=== PATIENT | male | born 1975 | race Caucasian/White ===

== ENCOUNTER 2024-01-27 07:46 | Emergency (ER) | payer OTHER ==
[~2024-01-27] VITALS: Ht 172.7 cm; Wt 97.7 kg
[2024-01-27] MEDS ORDERED: ASPI-1450 PO (07:54)
[2024-01-27] MEDS ORDERED: ESCI-8 PO (07:54)
[2024-01-27] MEDS ORDERED: AMLO-258 PO (07:54)
[2024-01-27 07:56] VITALS: TEMP 97.6
[2024-01-27 08:15] VITALS: BP 156/87; PULSE 72; RESP 18; O2SAT 99
[2024-01-27] MEDS ORDERED: CORTSOL AD (08:40)
== END 2024-01-27 08:45 | disposition home or self-care (01) ==
LOC: EMS 07:46
DX: H60.91 Unspecified otitis externa, right ear (principal); I10 Essential (primary) hypertension; Z98.890 Other specified postprocedural states; Z79.82 Long term (current) use of aspirin
CPT/HCPCS: 99283; Z7502

== ENCOUNTER 2024-08-18 11:16 | Emergency (ER) | payer OTHER ==
[~2024-08-18] VITALS: Ht 172.7 cm; Wt 104.1 kg
[~2024-08-18 11:16] MED LIST: AMLO-258 PO; ASPI-1450 PO; CORTSOL AD; ESCI-8 PO
[2024-08-18] MEDS ORDERED: ATOR10TA PO (11:21)
[2024-08-18] MEDS ORDERED: PROP80CA41 PO (11:21)
[2024-08-18 11:43] LABS: BASOPHILS % (AUTO) 0.9 % (0.0-2.0); EOSINOPHILS % (AUTO) 4.4 % (1.0-6.0); HEMATOCRIT 48.1 % (41-53); HEMOGLOBIN 16.2 g/dL (13.5-17.5); LYMPHOCYTES # (AUTO) 1.2 K/uL (1.0-4.8); LYMPHOCYTES % (AUTO) 19.4 % (22.0-44.0); MEAN CORPUSCULAR HEMOGLOBIN 29.1 pg (26.0-34.0); MEAN CORPUSCULAR HGB CONC 33.6 G/dL (31.0-37.0); MEAN CORPUSCULAR VOLUME 87 fL (80-100); MONOCYTES # (AUTO) 0.5 K/uL (0.1-1.0); MONOCYTES % (AUTO) 8.3 % (2.0-9.0); NEUTROPHILS # (AUTO) 4.2 K/uL (1.8-7.7); PLATELET COUNT (AUTO) 188 K/uL (150-450); RED BLOOD CELL COUNT(AUTO) 5.54 MIL/uL (4.50-5.90); RED CELL DISTRIBUTION WIDTH 13.4 % (11.5-14.5); WHITE BLOOD COUNT (AUTO) 6.3 K/uL (4.5-11.0)
[2024-08-18] MEDS: SODIUM CHLORIDE 0.9% 1,000 ML IV ONE ×2 (12:03→13:31)
[2024-08-18 12:07] LABS: ANION GAP 14 mmol/L (8-16); CALCIUM, TOTAL 9.4 mg/dL (8.8-10.5); CARBON DIOXIDE 24 mmol/L (22-29); CHLORIDE 93 mmol/L (98-107); CREATININE 0.98 mg/dL (0.60-1.30); GLOMERULAR FILTR. RATE CALC > 60 mL/min (>60); LIPASE 58 U/L (16-77); POTASSIUM 4.3 mmol/L (3.5-5.1); SODIUM SERUM 131 mmol/L (136-145); UREA NITROGEN, BLOOD 22 mg/dL (7-18)
[2024-08-18 12:08] LABS: GLUCOSE,RANDOM 709 mg/dL (70-110)
[2024-08-18 12:22] LABS: BILIRUBIN,DIRECT 0.2 mg/dL (0.00-0.20); BILIRUBIN,TOTAL 1.1 mg/dL (0.1-1.0); TOTAL PROTEIN, SERUM 7.2 g/dL (6.4-8.2)
[2024-08-18] MEDS: INSULIN REGULAR, HUMAN 100 UNITS/ML IVP ONE (12:28)
[2024-08-18] MEDS ORDERED: METF-1211 PO (13:18)
[2024-08-18 13:21] LABS: APPEARANCE,URINE CLEAR (CLEAR); BILIRUBIN,URINE NEGATIVE (NEGATIVE); COLOR,URINE COLORLESS (YELLOW); GLUCOSE, URINE (UA) >=1000 mg/dL (NEGATIVE); KETONES,URINE 40-60 mg/dL (NEGATIVE); LEUKOCYTE ESTERASE ,URINE NEGATIVE (NEGATIVE); NITRATE,URINE NEGATIVE (NEGATIVE); OCCULT BLOOD,URINE NEGATIVE (NEGATIVE); PROTEIN,URINE NEGATIVE (NEGATIVE); SPECIFIC GRAVITIY, URINE 1.031 (1.003-1.030); UROBILINOGEN,URINE <=1.0 mg/dL (<=1.0)
[2024-08-18 13:26] LABS: BACTERIA,URINE None Seen /HPF (None Seen); RBC,URINE None Seen /HPF (0-2); WBC,URINE None Seen /HPF (0-5)
[2024-08-18 13:41] LABS: GLUCOMETER DEV NAME(LOC) ER.7; GLUCOSE,POINT OF CARE 355 MG/DL (70-110)
[2024-08-18 13:43] VITALS: BP 136/89; PULSE 83; RESP 16; TEMP 98.1; O2SAT 95
== END 2024-08-18 14:54 | disposition home or self-care (01) ==
LOC: EMS 11:25
DX: E11.65 Type 2 diabetes mellitus with hyperglycemia (principal); E78.00 Pure hypercholesterolemia, unspecified; F32.A Depression, unspecified; I10 Essential (primary) hypertension; Z79.899 Other long term (current) drug therapy; Z98.890 Other specified postprocedural states
CPT/HCPCS: 99283; 96374; 96361; 80048; 80076; 81001; 82009; 82962; 83690; 85025; 36415; 82010; J1815